=== PATIENT | male | born 1960 | race Caucasian/White ===

== ENCOUNTER 2018-09-30 05:39 | Day surgery (SDC) | payer BC ==
[2018-09-27 13:48] LABS: HEMATOCRIT 44.9 % (42.0-52.0); HEMOGLOBIN 15.2 gm/dL (14.0-18.0); MCH 28.2 pg (26.0-34.0); MCHC 33.8 g/dL (28.0-37.0); MCV 83.5 fL (80.0-100.0); RBC 5.38 mil/uL (4.50-6.00); RDW 14.2 % (10.5-14.5); WBC 10.3 thou/uL (4.0-11.0)
[2018-09-27 13:49] LABS: URINE BILIRUBIN NEGATIVE (Negative); URINE BLOOD TRACE (Negative); URINE CLARITY CLEAR; URINE COLOR YELLOW; URINE GLUCOSE-RANDOM* 3+ (Negative); URINE KETONES NEGATIVE (Negative); URINE LEUKOCYTES-REFLEX NEGATIVE (Negative); URINE NITRITE-REFLEX NEGATIVE (Negative); URINE PROTEIN (DIPSTICK) NEGATIVE (Negative); URINE UROBILINOGEN 0.2 E.U./dl (0.2-1.0)
[2018-09-27 14:01] LABS: PROTIME 10.4 Seconds (9.3-11.4)
[2018-09-27 14:03] LABS: ALBUMIN 4.1 g/dL (3.4-5.0); CALCIUM 9.5 mg/dL (8.5-10.1); CREATININE 0.9 mg/dL (0.7-1.3); POTASSIUM 3.9 mmol/L (3.5-5.1)
[2018-09-28 04:11] LABS: GLYCOHEMOGLOBIN (HGB A1C) 8.2 % (4.8-5.6)
[~2018-09-30] VITALS: Ht 177.8 cm; Wt 114.3 kg
--- NOTE | ~2018-09-30 | O ---
[facility] [place] [address] OPERATIVE REPORT Name: CRISTAL MELISSA Room #: 150-12 [facility]..#: [id number] Admission: 09/30/18 Attend Phys: Tesfaye Ba MD Discharge: Date of : 62 Report #: [id number] THIS REPORT FOR: //name// CC: Tesfaye Graves DATE OF SERVICE: 09/30/2018 PREOPERATIVE DIAGNOSIS: Left knee medial compartment osteoarthritis. POSTOPERATIVE DIAGNOSIS: Left knee medial compartment osteoarthritis. PROCEDURE: Left knee medial compartment arthroplasty with Navio robotic certified medical assistant. SURGEON: Tesfaye Ba MD. ANESTHESIA: LMA with an adductor canal block. IMPLANTS: [employer] size 5 Journey [employer] Uni knee femoral component with a size 4 tibial component, a size 9 polyethylene. TOURNIQUET TIME: 71 minutes. ESTIMATED BLOOD LOSS: 10 mL. COMPLICATIONS: None. SPECIMENS: None. CONDITION UPON LEAVING THE OPERATING ROOM: Stable. INDICATIONS FOR PROCEDURE: The patient is a 58-year-old gentleman who has severe left knee medial compartment osteoarthritis. He failed conservative measures for this and after discussion with him, he elected for left unicompartmental knee arthroplasty. DESCRIPTION OF PROCEDURE: Risks, benefits, alternatives, complications were discussed in detail with the patient including but not limited to risk of anesthesia, risk of damage to nerves, arteries, blood vessels, risk for infection, bleeding, risk for continued knee pain and need for reoperation. Informed consent was obtained from the patient. Left knee was appropriately marked in the preoperative holding area. IV clindamycin was given for preoperative antibiotics. He was brought to the operating room and placed in supine position on operating room table. LMA anesthesia was induced without complication. Tourniquet was placed on the left thigh. Left lower extremity [address] [address] OPERATIVE REPORT Name: MELISSAGENOVEVACRISTAL G Room #: 150-12 [facility] Ed[place]#: [id number] Admission: 09/30/18 Attend Phys: Tesfaye Ba MD Discharge: Date of : 62 Report #: [id number] was prepped and draped in normal sterile fashion. Timeout was performed properly identifying the patient and procedure as well as the instrumentation and implants. All in the operating room were in agreement. Left lower extremity was exsanguinated, tourniquet was inflated. Tourniquet time was 71 minutes. A standard approach to the medial knee was made with 10 blade through the skin. Dissection was taken down sharply to the fascia and deep flaps were developed medially and laterally. Fresh 10 blade was used to make a medial parapatellar arthrotomy and the knee was inspected. There was severe medial compartment osteoarthritis. Patellofemoral compartment and lateral compartment were well maintained. ACL was intact. It was decided to proceed with medial compartment arthroplasty. Reference pins were placed in the femur and the tibia for the Navio system and the knee was then digitally mapped using the [employer] robotic system. Intraoperative plan was made. We sized the size 5 femur and a size 4 tibia. After acceptance of the intraoperative plan, the tibial and femoral cuts were made with the Navio bur. The tibia was sized again and found to be a size 4. Size 4 tibial trial was pinned in place and the lug holes were drilled. A size 5 femoral trial was placed and the knee was then tested with a size 8 and size 9 polyethylene. The 9 polyethylene had 1 mm of laxity throughout the full range of motion of the knee, both manually as well as digitally using the Navio as a backup check. After this, trial components were removed. Bony ends were then thoroughly irrigated with normal saline. A final size 5 Journey [employer]inium unicompartmental femoral component and a size 4 tibia were cemented in place using standard cementation techniques. While the cement cured, a periarticular injection consisting of morphine, ropivacaine, epinephrine, Toradol was placed around the joint capsule. After the cement cured, a final size 9 polyethylene was placed with a gram of vancomycin was placed deep in the joint. The fascia was closed with 0 Vicryl, skin was closed with 2-0 Vicryl, 3-0 Monocryl. Dermabond and a JAYLEEN dressing was applied. The patient tolerated this procedure well and went to the recovery room under the care of anesthesia postoperatively. By: [id number] Tesfaye Ba MD /nt
--- NOTE | ~2018-09-30 | EKG ---
[address] [place] [address] ELECTROCARDIOGRAM REPORT Name: CRISTAL MELISSA Room #: [facility]#: [id number] Admission: Attend Phys: Tesfaye Ba MD Discharge: Date of : 62 Report #: [id number] THIS REPORT FOR: //name// [facility] Test Date: 2018-09-27 Test Time: 13:35:22 Pat Name: CRISTAL MELISSA Department: Room: Gender: Manager Database: CHRISTINA CAPELLAN : 1960 Requested By: Tesfaye Ba Order Number: [id number] MD: Rafat Mcelroy Measurements Intervals [place] Rate: 85 P: 50 VT: 141 QRS: 17 QRSD: 100 T: -4 QT: 369 QTc: 439 Interpretive Statements Sinus rhythm Borderline T abnormalities, inferior leads Compared to ECG 06/25/1998 07:51:00 no significant change was found Electronically Signed On 09-27-2018 16:49:49 SHOULDER PAD MOLDER by Rafat Mcelroy [email or web address] <ELECTRONICALLY SIGNED> By: Rafat Mcelroy MD, [facility] 09/27/18 1649 Rafat Mcelroy MD, FACC /EPI
[~2018-09-30 05:39] MED LIST: ALLERGY10 M2 PO; AMARYL4 MG PO; ASPIR 8181 MG PO; CENTRUM SILVER1 EAC2 PO; CINNAMON500 MG PO; CITRACAL SOFT1 EACH PO; FISH OIL 1,001000 M2 PO; GLUCOSAMINE SU500 M1 PO; JANUMET XR 50-1 EAC1 PO; JARDIANCE25 MG PO; LIPITOR80 MG PO; MAGOX 400400 MG PO; NASACORT10.8 ML NASAL; NEURONTIN 300300 M1 PO; RESVERATROL100 MG PO; SAW PALMETTO500 MG PO; SINGULAIR 10 MG10 M1 PO; TURMERIC500 M2 PO; VITAMIN D5000 UNIT PO; ZINC50 MG PO
[2018-09-30 08:00] VITALS: BP 144/75
[2018-09-30] MEDS ORDERED: TRI-BUFFERED A325 M1 PO (15:44)
[2018-09-30] MEDS ORDERED: HYDROCODON-ACE1 EAC7 PO (15:45)
[2018-09-30] MEDS ORDERED: MS CONTIN15 MG PO (15:45)
[2018-09-30 15:50] VITALS: BP 144/75
== END 2018-09-30 16:15 | disposition home or self-care (01) ==
LOC: OR 05:39 → TBA 05:40 → OR 06:00
PROVIDERS: Orthopaedic Surgery
DX: M17.12 Unilateral primary osteoarthritis, left knee (principal); E11.9 Type 2 diabetes mellitus without complications; E78.5 Hyperlipidemia, unspecified; Z87.442 Personal history of urinary calculi; Z90.49 Acquired absence of other specified parts of digestive tract; Z98.890 Other specified postprocedural states; Z79.899 Other long term (current) drug therapy; Z88.0 Allergy status to penicillin
CPT/HCPCS: 50010; 50101; 50415; 50954; 51130; 51225; 51771; 53078; 53370; 54118; 56527; 56528; 57095; 57103; 57109; 57110; 57113; 57127; 62110; 62900; 70005